=== PATIENT | female | born 1955 | race Caucasian/White ===

== ENCOUNTER → 2017-09-30 | Outpatient (REF) | payer OTHER | LOC: M SFHCWAGY 15:11 | PROVIDERS: ATTEND Nurse Practitioner Women's Health | DX: Z12.4 Encounter for screening for malignant neoplasm of cervix (principal) ==

== ENCOUNTER → 2017-09-30 | Outpatient (CLI) | payer OTHER ==
--- NOTE | 2017-09-30 17:55 | REP ---
Bilateral screening digital mammogram: There are no palpable abnormalities or other breast complaints. The patient states she had a clinical breast exam in September 2017. Comparison is 01/21/2011. The patient has an [facility] Lifetime risk of breast carcinoma of 22.7%. Therefore, biannual breast MRI might be considered alternating with biannual mammograms. There is focally dense breast parenchyma in the subareolar zones. The remainder of the parenchyma is predominately adipose. There are occasional benign calcifications. There has been no interval development of masses, areas of structural distortion or clusters of microcalcifications typical of malignancy. Impression: There is no evidence of malignancy. BIRADS category 2 benign findings. The patient has an [facility] Lifetime risk of breast carcinoma of 22.7%. Therefore, biannual breast MRI might be considered alternating with biannual mammograms. BI-RADS/ACR category 2 mammogram. Benign finding(s). Routine annual screening mammography (for women over age 40). This mammogram was interpreted with the aid of an FDA-approved computer-aided detection system. A. Negative x-ray reports should not delay biopsy if a dominant or clinically suspicious mass is present. B. Not all breast cancers are identified by x-ray. C. Adenosis and dense breasts may obscure an underlying neoplasm The patient letter being requested is M1 (dense).
== END ==
LOC: M WHC 14:29
PROVIDERS: ATTEND Nurse Practitioner Women's Health
DX: Z12.31 Encounter for screening mammogram for malignant neoplasm of breast (principal)

== ENCOUNTER → 2020-01-15 | Outpatient (CLI) | payer OTHER ==
--- NOTE | 2020-01-15 18:55 | REP ---
LEFT SHOULDER, THREE VIEWS: There is no evidence of an acute fracture, dislocation or intrinsic bone disease. IMPRESSION: No fracture or dislocation. Electronically Signed by Simone Doyle MD 01/15/2020 08:27 P
== END ==
LOC: M WUC 18:18
PROVIDERS: ATTEND Physician Assistant
DX: S43.402A Unspecified sprain of left shoulder joint, initial encounter (principal); W18.30XA Fall on same level, unspecified, initial encounter; Y92.9 Unspecified place or not applicable

== ENCOUNTER → 2020-09-27 | Outpatient (CLI) | payer SELFPAY | LOC: M LABSMTC 09:51 | PROVIDERS: ATTEND Pediatrics | DX: Z20.828 Contact with and (suspected) exposure to other viral communicable diseases (principal) ==

== ENCOUNTER → 2021-10-13 | Outpatient (CLI) | payer OTHER | LOC: M WHC 14:26 | PROVIDERS: ATTEND Family Medicine | DX: Z12.31 Encounter for screening mammogram for malignant neoplasm of breast (principal) ==

== ENCOUNTER → 2022-10-14 | Outpatient (CLI) | payer OTHER | LOC: M WHC 14:01 | PROVIDERS: ATTEND Family Medicine | DX: Z12.31 Encounter for screening mammogram for malignant neoplasm of breast (principal) ==

== ENCOUNTER → 2023-04-21 | Outpatient (CLI) | payer OTHER ==
[2023-04-21 17:51] LABS: BLOOD UREA NITROGEN 13 MG/DL (9-23); CREATININE FOR GFR 0.97 MG/DL (0.55-1.30); GLOMERULAR FILTRATION RATE > 60.0 (>45)
== END ==
LOC: M PLALAB 16:31
PROVIDERS: ATTEND Orthopaedic Surgery
DX: S32.020A Wedge compression fracture of second lumbar vertebra, initial encounter for closed fracture (principal); W18.30XA Fall on same level, unspecified, initial encounter; Y92.009 Unspecified place in unspecified non-institutional (private) residence as the place of occurrence of the external cause

== ENCOUNTER → 2023-05-11 | Outpatient (CLI) | payer OTHER | LOC: M RAD 07:40 | PROVIDERS: ATTEND Orthopaedic Surgery | DX: M80.88XA Other osteoporosis with current pathological fracture, vertebra(e), initial encounter for fracture (principal) ==

== ENCOUNTER 2023-09-29 09:16 | Day surgery (SDC) | payer OTHER ==
[~2023-09-29] VITALS: Ht 162.6 cm; Wt 64.9 kg
[2023-09-29] MEDS ORDERED: propofoL 500 MG/50 ML VIAL As Ordered ONE (10:35)
[2023-09-29] MEDS ORDERED: LIDOCAINE 2% 100MG/5ML SDV (FOR ANES.) As Ordered ONE (10:35)
[2023-09-29] MEDS ORDERED: PHENYLephrine 500MCG 5ML (100MCG/ML) SYRINGE As Ordered ONE (10:50)
[2023-09-29 10:56] VITALS: TEMP 98
[2023-09-29 11:15] VITALS: BP 103/57; O2SAT 100
== END 2023-09-29 11:22 | disposition home or self-care (01) ==
LOC: M OPP 09:16
PROVIDERS: ATTEND Surgery
DX: Z12.11 Encounter for screening for malignant neoplasm of colon (principal); D12.6 Benign neoplasm of colon, unspecified; K57.30 Diverticulosis of large intestine without perforation or abscess without bleeding; Z88.1 Allergy status to other antibiotic agents
CPT/HCPCS: 45385; 88305; J2371

== ENCOUNTER → 2024-10-30 | Outpatient (CLI) | payer OTHER | LOC: M WHC 15:53 | PROVIDERS: ATTEND Family Medicine | DX: Z12.31 Encounter for screening mammogram for malignant neoplasm of breast (principal) ==